=== PATIENT | female | born 1980 | race Caucasian/White ===

== ENCOUNTER → 2024-01-16 09:32 | Outpatient (REF) | payer BC, SELFPAY | LOC: HWWDC 09:32 | PROVIDERS: ATTENDING PHYSICIAN Family Medicine; REFERRING PHYSICIAN Obstetrics & Gynecology | DX: Z12.31 Encounter for screening mammogram for malignant neoplasm of breast (principal) | CPT/HCPCS: 77063; 77067 ==

== ENCOUNTER → 2024-01-21 09:33 | Outpatient (REF) | payer BC, SELFPAY | LOC: WDC 09:33 | PROVIDERS: ATTENDING PHYSICIAN Family Medicine | DX: R92.8 Other abnormal and inconclusive findings on diagnostic imaging of breast (principal) | CPT/HCPCS: 76642 ==

== ENCOUNTER 2024-02-13 12:18 | Emergency (ER) | payer BC, SELFPAY ==
[2024-02-13 12:29] VITALS: BP 133/74
[2024-02-13 12:45] LABS: % Eosinophils 0.9 % (0-6); % Immature Granulocytes 0.3 % (0-0.5); % Lymphocytes 37.3 % (20.5-51.1); % Monocytes 10.1 % (1.7-9.3); % Neutrophils 51.4 % (42.2-75.2); Absolute Lymphocytes 1.3 10^3/uL (1.2-3.4); Absolute Monocytes 0.3 10^3/uL (0.1-0.6); Absolute Neutrophils 1.7 10^3/uL (1.4-6.5); Hematocrit 37.6 % (37.0-47.0); Mean Corp Hgb Conc. 34.6 g/dL (33.0-37.0); Mean Corpuscular Hgb 31.8 pg (27.0-31.0); Mean Corpuscular Volume 91.9 fL (81.0-99.0); Nucleated Red Blood Cells % 0 %; Platelet Count 201 10^3/uL (130-400); Red Blood Cell Count 4.09 10^6/uL (4.20-5.40); Red Cell Dist. Width 12.1 % (11.5-14.5); White Blood Cell Count 3.4 10^3/uL (4.8-10.8)
[2024-02-13 13:02] LABS: HCG, Serum Qualitative Screen Negative
[2024-02-13 13:03] LABS: ALT (SGPT) 21 U/L (0-35); AST (SGOT) 26 U/L (14-36); Albumin 4.4 g/dl (3.5-5.0); Alkaline Phosphatase 53 U/L (38-126); Blood Urea Nitrogen 16 mg/dl (7-17); Calcium 9.2 mg/dl (8.4-10.2); Carbon Dioxide 28 mmol/L (22-30); Chloride 102 mmol/L (98-107); Glucose 93 mg/dl (70-99); Potassium 4.4 mmol/L (3.5-5.1); Sodium 136 mmol/L (135-145); Total Bilirubin 0.6 mg/dl (0.2-1.3); Total Protein 6.8 g/dl (6.3-8.2); eGFR > 60.00
[2024-02-13 14:33] LABS: Lipase 119 U/L (23-300)
[2024-02-13 15:12] VITALS: BMI 24.8
--- NOTE | 2024-02-13 16:36 | ED.GENMED ---
History of Present Illness
<Roberto Huerta Jr., PA-C - Last Filed: 02/13/24 16:44>
General
Chief Complaint: Abdominal Pain
Source: patient
Exam Limitations: none
Time Seen by Provider: 02/13/24 14:52
Nursing documentation reviewed up to this point in time: agreed with
History of Present Illness
History of Present Illness:
43-year-old female with past medical history of diverticulitis, migraines presenting to the emergency department today with concerns of left lower quadrant pain over the past 2 days no nausea vomiting diarrhea no fevers. Past medical history of
diverticulitis. Feels similar.
Past History
<Roberto Huerta Jr., PA-C - Last Filed: 02/13/24 16:44>
Past History
ED Past Medical History: Psychiatric, Other (Diverticulitis) and Other (PNA)
ED Past Surgical History: Appendectomy and Tonsilectomy
Social History
Tobacco: Non-smoker
Alcohol: None
Drug: None
Personal:
Living: with family
Review of Systems
<Roberto Huerta Jr., PA-C - Last Filed: 02/13/24 16:44>
Review of Systems
Allergies reviewed?: Yes
All Other Systems: ROS reviewed and negative except as documented in HPI and ROS
Phy Exam
<Roberto Huerta Jr., PA-C - Last Filed: 02/13/24 16:44>
Physical Exam
Physical Exam:
GENERAL: Alert , in no apparent distress
EYE: pupils equal and reactive
NECK: Supple, no significant adenopathy.
ENT: o/p clr, mmm.
CARDIAC: Regular rate and rhythm .
LUNGS: Clear breath sounds bilaterally, no acute respiratory distress, no wheezes/rales/rhonchi
ABDOMEN: Left lower quadrant tenderness palpation otherwise soft benign abdomen.
NEUROLOGICAL: Alert and oriented, no focal neuro deficits
SKIN: Warm and dry, skin intact.
MUSCULOSKELETAL: No edema, well perfused.
PSYCH: Normal and appropriate interaction.
Course
<Roberto Huerta Jr., PA-C - Last Filed: 02/13/24 16:44>
Orders/Labs/Results
Orders:
Orders
02/13/24 12:33
Test Result ONCE
02/13/24 12:37
Complete Blood Count/With Diff Urgent
Comprehensive Metabolic Panel Urgent
HCG, Serum Qualitative Screen Urgent
Comment: Notify provider if positive test present
Lipase Urgent
02/13/24 15:14
CT Abd/Pel (IV only)-[facility] only Urgent
Comment:
Reason For Exam: llq pain
Abnormal Lab Results
02/13/24
12:37
WBC 3.4 L 10^3/uL
(4.8-10.8)
RBC 4.09 L 10^6/uL
(4.20-5.40)
MCH 31.8 H pg
(27.0-31.0)
Monocytes % 10.1 H %
(1.7-9.3)
02/13/24 12:37
02/13/24 12:37
Vital Signs
Initial and Last Documented VS:
Initial Vital Signs
Temp Pulse Resp BP Pulse Ox
98.3 F 73 16 133/74 99
02/13/24 12:29 02/13/24 12:29 02/13/24 12:29 02/13/24 12:29 02/13/24 12:29
Last Documented Vital Signs
Temp Pulse Resp BP Pulse Ox
98.3 F 61 18 112/71 100
02/13/24 12:29 02/13/24 16:55 02/13/24 16:55 02/13/24 16:55 02/13/24 16:55
<Josie Craven DO - Last Filed: 02/13/24 18:09>
Orders/Labs/Results
Orders:
Orders
02/13/24 12:33
Test Result ONCE
02/13/24 12:37
Complete Blood Count/With Diff Urgent
Comprehensive Metabolic Panel Urgent
HCG, Serum Qualitative Screen Urgent
Comment: Notify provider if positive test present
Lipase Urgent
02/13/24 15:14
CT Abd/Pel (IV only)-[facility] only Urgent
Comment:
Reason For Exam: llq pain
Abnormal Lab Results
02/13/24
12:37
WBC 3.4 L 10^3/uL
(4.8-10.8)
RBC 4.09 L 10^6/uL
(4.20-5.40)
MCH 31.8 H pg
(27.0-31.0)
Monocytes % 10.1 H %
(1.7-9.3)
02/13/24 12:37
02/13/24 12:37
Vital Signs
Initial and Last Documented VS:
Initial Vital Signs
Temp Pulse Resp BP Pulse Ox
98.3 F 73 16 133/74 99
02/13/24 12:29 02/13/24 12:29 02/13/24 12:29 02/13/24 12:29 02/13/24 12:29
Last Documented Vital Signs
Temp Pulse Resp BP Pulse Ox
98.3 F 61 18 112/71 100
02/13/24 12:29 02/13/24 16:55 02/13/24 16:55 02/13/24 16:55 02/13/24 16:55
<Roberto Huerta Jr., PA-C - Last Filed: 02/13/24 16:44>
MDM/Problems Addressed
MDM/Problems Addressed:
43-year-old female presenting to the emergency department today for concerns of left lower quadrant abdominal pain over the past 2 days associated bloating no nausea vomiting diarrhea. There is tenderness to palpation to the left lower quadrant on
exam.
ED Attending Note
<Roberto Huerta Jr., PAKianna - Last Filed: 02/13/24 16:44>
-
Portions of this chart may have been created with voice recognition software.� Occasional wrong word or��sound alike� substitutions may have occurred due to the inherent limitations of voice recognition software.
<Josie Craven DO - Last Filed: 02/13/24 18:09>
ED Attending Note
Patient seen and examined by attending physician: Yes
I performed the substantive portion of visit, reviewed & personally made and approve the management plan that is documented in note by myself or ESTUARDO.: Yes
I performed a history and physical exam of patient and discussed management with resident, I reviewed resident's note and agree with documented findings and plan of care.: Yes
ED Attending Note:
Patient seen and evaluated bedside, 43-year-old female with prior history of diverticulitis presenting for left lower quadrant abdominal pain for 2 days. Does note some diarrhea. Symptoms feel similar to prior episode diverticulitis. No fevers.
Vital signs within normal limits.
Labs unremarkable. On exam, patient afebrile, nontoxic, with mild tenderness to the left lower quadrant with high suspicion for uncomplicated diverticulitis. Plan for CT imaging.
18:00-CT without evidence of diverticulitis, however patient is focally tender to the left lower quadrant with high clinical suspicion. Discussion had with patient regarding trial of observation versus antibiotics, would like to start antibiotics.
Will start on Augmentin. Otherwise feel stable for discharge. Return precautions discussed and patient verbalized understanding.
Discharge Plan
Departure
Patient with high blood pressure during this ER visit?: No
Condition: Good
Discharge Problem:
Acute diverticulitis of intestine
Instructions: Diverticulitis (DC)
Prescriptions:
No Action
citalopram 10 mg tablet
10 mg PO HS
Linzess 72 mcg capsule
72 mcg PO DAILY
Nurtec ODT 75 mg tablet,disintegrating
75 mg PO DAILY PRN (Reason: headache)
mag citrate-potassium citrate 70-99 mg Capsule
250 cap PO DAILY AT 0700
vancomycin 250 mg capsule
250 mg PO QID Qty: 48 0RF
Saccharomyces boulardii 250 mg Capsule
250 mg PO DAILY Qty: 30 0RF
Referrals:
Tenthoff,Kendy Kaba MD [Family Provider] -
Activity Restrictions/Additional Instructions:
You were seen in the emergency department for abdominal pain
You were found to have acute diverticulitis. You were started on Augmentin. Please take as prescribed.
Please follow-up closely with your primary care physician.
Return to the emergency department for any worsening of your symptoms, or any development of chest pain, difficulty breathing, abdominal pain with persistent vomiting and inability to tolerate food or liquid by mouth (concern for dehydration),
weakness, headache or confusion, fever greater than 100.4, or any additional symptoms that are concerning to you.
Thank you for choosing [facility].
Interventions
Interventions:
*Risk Screen - Suicide Last Done: 02/13/24 12:29
*General Assessment Last Done: 02/13/24 12:29
*Neglect/Abuse Screening Last Done: 02/13/24 12:29
*ED COVID-19 Vaccine History Last Done: 02/13/24 12:29
Discharge Date and Time
Print Language: TANZANIAN
[2024-02-13 16:55] VITALS: BP 112/71
[2024-02-13] MEDS: AUGMENTIN 875 MG/125 MG 1 TABLET PO (18:20)
[2024-02-13 18:21] VITALS: BP 112/63
== END 2024-02-13 18:25 | disposition home or self-care (01) ==
LOC: EMR 12:18
PROVIDERS: Student in an Organized Health Care Education/Training Program; EMERGENCY PHYSICIAN Student in an Organized Health Care Education/Training Program; FAMILY PHYSICIAN Family Medicine
DX: K57.92 Diverticulitis of intestine, part unspecified, without perforation or abscess without bleeding (principal); Z90.49 Acquired absence of other specified parts of digestive tract
CPT/HCPCS: 99284; 74177; 80053; 83690; 84703; 85025; Q9967

== ENCOUNTER → 2024-05-13 10:24 | Outpatient (REF) | payer BC, SELFPAY | LOC: WDC 10:24 | PROVIDERS: ATTENDING PHYSICIAN Nurse Practitioner Adult Health; FAMILY PHYSICIAN Family Medicine | DX: N63.20 Unspecified lump in the left breast, unspecified quadrant (principal) | CPT/HCPCS: 76642; 77061; 77065 ==

== ENCOUNTER → 2024-11-06 12:41 | Outpatient (REF) | payer BC, SELFPAY ==
[2024-11-06 10:47] LABS: Urine Red Blood Cell 0-2 /HPF (0-2); Urine White Cell 0-2 /HPF (0-5)
== END ==
LOC: OIDL 12:41
PROVIDERS: ATTENDING PHYSICIAN Nurse Practitioner Adult Health
DX: Z12.31 Encounter for screening mammogram for malignant neoplasm of breast (principal); R10.30 Lower abdominal pain, unspecified; N63.20 Unspecified lump in the left breast, unspecified quadrant
CPT/HCPCS: 81015; 87086

== ENCOUNTER 2025-01-13 06:24 | Day surgery (SDC) | payer BC, SELFPAY | END 2025-01-13 11:42 | disposition home or self-care (01) | LOC: GI 06:24 | PROVIDERS: ATTENDING PHYSICIAN Internal Medicine | DX: K64.9 Unspecified hemorrhoids (principal); K57.32 Diverticulitis of large intestine without perforation or abscess without bleeding; K44.9 Diaphragmatic hernia without obstruction or gangrene; R12 Heartburn; K22.89 Other specified disease of esophagus; K29.70 Gastritis, unspecified, without bleeding; D12.3 Benign neoplasm of transverse colon; K31.89 Other diseases of stomach and duodenum; Z86.0102 Personal history of hyperplastic colon polyps | CPT/HCPCS: 45385; 43239; 88305; 88342 ==

== ENCOUNTER → 2025-01-29 15:12 | Outpatient (REF) | payer BC, SELFPAY | LOC: WDC 15:12 | PROVIDERS: ATTENDING PHYSICIAN Registered Nurse; FAMILY PHYSICIAN Family Medicine | DX: Z12.31 Encounter for screening mammogram for malignant neoplasm of breast (principal) | CPT/HCPCS: 77063; 77067 ==